=== PATIENT | male | born 1990 | race Caucasian/White ===

== ENCOUNTER 2020-06-02 12:57 | Emergency (ER) | payer BC ==
[~2020-06-02] VITALS: Ht 172.7 cm; Wt 86.4 kg
[2020-06-02 13:02] VITALS: Ht 172.7 cm; Wt 86.4 kg
[2020-06-02 14:14] LABS: BASOPHILS 0.6 % (0-2); EOSINOPHILS 14.2 % (0-7); HEMATOCRIT 43.4 % (42.0-54.0); IMMATURE GRANULOCYTES 0.1 % (0-5); LYMPHOCYTES 28.8 % (15-50); MCH 31.3 pg (26.0-34.0); MCHC 34.6 g/dL (31.0-37.0); MCV 90.4 fL (80.0-100.0); MEAN PLATELET VOLUME 9.6 fL (7.4-10.4); MONOCYTES 6.9 % (2-11); NEUTROPHILS 49.4 % (40-80); PLATELET COUNT 205 10x3/uL (130-400); RDW 12.1 % (11.5-14.5); WBC 6.7 10x3/uL (4.8-10.8)
[2020-06-02 14:21] LABS: CALC OSMOLALITY 282 mosm/kg (275-300); CALCIUM 8.5 mg/dL (8.5-10.1); CARBON DIOXIDE 30.5 mmol/L (21.0-32.0); CHLORIDE - SERUM 105 mmol/L (98-107); GLUCOSE 93 mg/dL (74-106); POTASSIUM - SERUM 4.1 mmol/L (3.5-5.1); SODIUM 143 mmol/L (136-145); UREA NITROGEN 6 mg/dL (7-18); eGFR NON AFRICAN AMERICAN > 90 mL/min (90-120)
[2020-06-02 14:22] LABS: INR 1.01 (0.85-1.17); PROTIME 13.3 SECONDS (11.6-15.0)
[2020-06-02 14:23] LABS: APTT 27.6 SECONDS (22.8-39.4)
[2020-06-02 14:38] LABS: ALBUMIN 4.1 g/dL (3.4-5.0); ALKALINE PHOSPHATASE 98 U/L (30-120); ALT (SGPT) 38 U/L (10-68); BILIRUBIN - TOTAL 0.21 mg/dL (0.2-1.3); CKMB 1.1 U/L (0.0-3.6); CREATINE KINASE 131 UL (21-232); PRO BNP 24 pg/mL (0-125)
[2020-06-02 14:44] LABS: TROPONIN-I < 0.017 ng/mL (0.000-0.060)
[2020-06-02] MEDS ORDERED: VIBRAMYCIN 100100 MG PO (15:33)
[2020-06-02] MEDS ORDERED: STERAPRED DS 1010 MG PO (15:34)
[2020-06-02 16:34] VITALS: BP 132/78
== END 2020-06-02 16:35 | disposition home or self-care (01) ==
LOC: D.ER 12:57
PROVIDERS: Family Medicine
DX: J06.9 Acute upper respiratory infection, unspecified (principal); R05 Cough; R09.81 Nasal congestion